=== PATIENT | male | born 1965 | race Two or more races ===

== ENCOUNTER 2016-11-08 22:29 | Emergency (ER) | payer OTHER ==
[~2016-11-08] VITALS: Ht 167.6 cm; Wt 80.9 kg
[2016-11-08] MEDS ORDERED: RISP2TAB3 PO (22:44)
[2016-11-08] MEDS ORDERED: MELO15TA4 PO (22:44)
[2016-11-08] MEDS ORDERED: BENZ0.5T PO (22:44)
[2016-11-08] MEDS ORDERED: ZOLO100T PO (22:44)
[2016-11-09] MEDS ORDERED: KETO10TAB PO (04:46)
[2016-11-09 04:55] VITALS: BP 98/53
== END 2016-11-09 04:57 | disposition home or self-care (01) ==
LOC: M ED 22:29
DX: K08.89 Other specified disorders of teeth and supporting structures (principal); F33.9 Major depressive disorder, recurrent, unspecified; F17.210 Nicotine dependence, cigarettes, uncomplicated; Z79.899 Other long term (current) drug therapy

== ENCOUNTER → 2024-05-03 | Outpatient (CLI) | payer OTHER ==
[~2024-05-03] MED LIST: BENZ0.5T2 PO; KETO10TAB PO; MELO15TA28 PO; RISP-106 PO; ZOLO100T PO
[2024-05-03 14:43] LABS: BASO % 0.7 % (0.0-1.0); EOS # 0.1 10^3/uL (0.0-0.5); EOS % 2.4 % (0.0-3.0); HEMATOCRIT 43.2 % (42.0-52.0); HEMOGLOBIN 14.4 g/dl (13.5-17.5); LYMPH # 1.7 10^3/uL (1.5-5.0); LYMPH % 29.9 % (24.0-44.0); MEAN CORPUSCULAR HEMOGLOBIN 29.8 pg (27.0-33.0); MEAN CORPUSCULAR HGB CONC 33.3 g/dl (32.0-36.5); MEAN CORPUSCULAR VOLUME 89.4 fl (80.0-96.0); MONO # 0.7 10^3/uL (0.0-0.8); MONO % 11.8 % (2.0-8.0); NEUTROPHILS # 3.2 10^3/uL (1.5-8.5); NEUTROPHILS % 54.9 % (36.0-66.0); PLATELET COUNT, AUTOMATED 274 10^3/uL (150-450); RED BLOOD COUNT 4.83 10^6/uL (4.30-6.10); WHITE BLOOD COUNT 5.8 10^3/uL (4.0-10.0)
[2024-05-03 14:53] LABS: ERYTHROCYTE SEDIMENTATION RATE 18 mm/hr (0-20)
== END ==
LOC: M WUC 10:48
PROVIDERS: ATTEND Nurse Practitioner Family
DX: R59.0 Localized enlarged lymph nodes (principal)